=== PATIENT | female | born 1985 | race African-American/Black ===

== ENCOUNTER 2019-01-05 17:39 | Emergency (ER) | payer OTHER ==
[~2019-01-05] VITALS: Ht 170.2 cm; Wt 71.7 kg
[2019-01-05] MEDS ORDERED: VENTOLIN HFA 1818 GM INH (17:46)
[2019-01-05] MEDS ORDERED: MOBIC7.5 MG PO (19:15)
[2019-01-05] MEDS ORDERED: ASPERCREME1 EACH TRANSDERM (19:15)
[2019-01-05] MEDS ORDERED: CYCLOBENZAPRINE5 MG PO (19:15)
[2019-01-05 19:33] VITALS: BP 138/76
== END 2019-01-05 19:33 | disposition home or self-care (01) ==
LOC: ER 17:39
DX: M54.5 Low back pain (principal); M25.512 Pain in left shoulder; M25.511 Pain in right shoulder; J45.909 Unspecified asthma, uncomplicated; V89.2XXA Person injured in unspecified motor-vehicle accident, traffic, initial encounter; Y92.89 Other specified places as the place of occurrence of the external cause; Y93.89 Activity, other specified; Y99.8 Other external cause status

== ENCOUNTER 2019-01-08 12:20 | Emergency (ER) | payer OTHER ==
[~2019-01-08] VITALS: Ht 172.7 cm; Wt 70.3 kg
[~2019-01-08 12:20] MED LIST: ASPERCREME1 EACH TRANSDERM; CYCLOBENZAPRINE5 MG PO; MOBIC7.5 MG PO; VENTOLIN HFA 1818 GM INH
[2019-01-08 12:46] VITALS: BP 119/70
[2019-01-08] MEDS ORDERED: CYCLOBENZAPRINE5 MG PO (13:25)
== END 2019-01-08 13:42 | disposition home or self-care (01) ==
LOC: ER 12:20
DX: S39.012A Strain of muscle, fascia and tendon of lower back, initial encounter (principal); J45.909 Unspecified asthma, uncomplicated; Z88.6 Allergy status to analgesic agent; V49.49XA Driver injured in collision with other motor vehicles in traffic accident, initial encounter; Y93.89 Activity, other specified; Y92.488 Other paved roadways as the place of occurrence of the external cause; Y99.8 Other external cause status

== ENCOUNTER 2019-04-01 17:55 | Emergency (ER) | payer OTHER ==
[~2019-04-01] VITALS: Ht 170.2 cm; Wt 81.7 kg
[2019-04-01] MEDS ORDERED: CYCLOGYL15 ML OPHTHALMIC (20:21)
[2019-04-01 20:36] VITALS: BP 113/77
== END 2019-04-01 20:38 | disposition home or self-care (01) ==
LOC: ER 17:55
DX: S05.11XA Contusion of eyeball and orbital tissues, right eye, initial encounter (principal); H57.89 Other specified disorders of eye and adnexa; J45.909 Unspecified asthma, uncomplicated; Z88.6 Allergy status to analgesic agent; Y04.0XXA Assault by unarmed brawl or fight, initial encounter; Y93.89 Activity, other specified; Y92.89 Other specified places as the place of occurrence of the external cause; Y99.8 Other external cause status

== ENCOUNTER 2019-06-21 20:01 | Emergency (ER) | payer OTHER ==
[~2019-06-21] VITALS: Ht 170.2 cm; Wt 80.7 kg
[~2019-06-21 20:01] MED LIST changes: +CYCLOGYL15 ML OPHTHALMIC
[2019-06-21 22:03] LABS: URINE BILIRUBIN NEGATIVE (Negative); URINE BLOOD 3+ (Negative); URINE CLARITY CLEAR; URINE COLOR YELLOW; URINE GLUCOSE-RANDOM* NEGATIVE (Negative); URINE KETONES NEGATIVE (Negative); URINE LEUKOCYTES-REFLEX NEGATIVE (Negative); URINE NITRITE-REFLEX NEGATIVE (Negative); URINE PROTEIN (DIPSTICK) 2+ (Negative); URINE SPECIFIC GRAVITY >= 1.030 (1.005-1.035); URINE UROBILINOGEN 0.2 E.U./dl (0.2-1.0)
[2019-06-21 22:14] LABS: BACTERIA-REFLEX 1-9 Few /HPF (None Seen); CASTS None Seen /LPF (None Seen); CRYSTALS None Seen /LPF (None Seen); SQUAMOUS 0-3 Few /LPF (0-3); URINE WBC-REFLEX 0-5 Rare /HPF (0-5)
[2019-06-21] MEDS ORDERED: TAMIFLU75 MG PO (22:44)
[2019-06-21] MEDS ORDERED: TESSALON PERLE100 MG PO (22:46)
[2019-06-21 23:43] VITALS: BP 112/67
== END 2019-06-21 23:38 | disposition home or self-care (01) ==
LOC: ER 20:01
PROVIDERS: Physician Assistant
DX: R05 Cough (principal); R50.9 Fever, unspecified; J45.909 Unspecified asthma, uncomplicated; Z88.8 Allergy status to other drugs, medicaments and biological substances